=== PATIENT | male | born 1930 | race Caucasian/White ===

== ENCOUNTER 2019-04-20 14:45 | Inpatient (IN) ==
[2019-04-20] MEDS ORDERED: NS 3,000 ML IV ONE (15:24)
--- NOTE | 2019-04-20 15:40 | Diag Imaging Result Doc PS360 ---
CHEST-2 VIEWS - 04/20/2019 INDICATION: AMS COMPARISON: 07/26/2011 FINDINGS: There is a new left-sided biventricular pacemaker. There is significant cardiomegaly. Lung volumes are severely low with bibasilar crowding/atelectasis. IMPRESSION: Nonspecific findings. Electronically signed by Taz Serrato 04/20/2019 3:37 PM
--- NOTE | 2019-04-20 16:05 | Diag Imaging Result Doc PS360 ---
CT HEAD W/O CONTRAST - 04/20/2019 INDICATION: ams COMPARISON: None FINDINGS: There is mild diffuse cerebral atrophy. There is mild periventricular white matter chronic microvascular disease. There is a small focus of old encephalomalacia at the superior left cerebellar hemisphere compatible with a very small, old stroke. No intracranial mass or hemorrhage. The skull is intact. The sinuses are clear. There is advanced vascular calcification of the carotid siphons bilaterally. IMPRESSION: No acute process. This exam was performed using automated exposure control, adjustment of mA or kV according to patient size, and/or use of iterative reconstruction technique Electronically signed by Taz Serrato 04/20/2019 4:03 PM
[2019-04-20 16:54] LABS: BASO# 0.04 X1000 (0.0-0.2); BASO% 0.2 % (0.0-0.8); EOS# 0.03 X1000 (0.0-0.7); EOS% 0.2 % (0.0-10.0); HEMATOCRIT 38.3 % (42.0-52.0); HEMOGLOBIN 12.8 g/dL (14.0-18.0); IMM GRAN# 0.06 X1000 (0.0-0.04); IMM GRAN% 0.4 % (0.0-0.5); LYMPH# 1.58 X1000 (1.2-3.4); LYMPH% 9.3 % (20.5-51.1); MCH 30.2 PG (27-31); MCHC 33.4 g/dL (33-37); MCV 90.3 FL (81-99); MONO# 2.14 X1000 (0.11-0.59); MONO% 12.6 % (1.7-9.3); MPV 9.5 FL (7.4-10.4); NEUT# 13.08 X1000 (1.4-6.5); NEUT% 77.3 % (42.2-75.2); PLT 286 X1000 (130-400); RBC 4.24 XMIL (4.7-6.1); RDW 13.7 % (11.5-14.5); WBC 16.93 X1000 (4.8-10.8)
[2019-04-20 17:20] LABS: INR 1.1; PROTIME 15.1 Seconds (11.0-16.0)
[2019-04-20 17:37] LABS: ALB/GLOB RATIO 1.2; ALBUMIN 3.1 g/dL (3.5-5.0); CALCIUM 8.4 mg/dL (8.8-10.2); CREATININE 1.2 mg/dL (0.7-1.2); POTASSIUM 3.9 mmol/L (3.5-5.1); TOTAL BILIRUBIN 0.27 mg/dL (0.20-1.00); TOTAL PROTEIN 5.7 g/dL (6.3-8.3)
[2019-04-20] MEDS: ZOSYN 3.375 GM in NS 50 ML IV SCH ×2 (17:50→23:22)
--- NOTE | 2019-04-20 18:30 | PROVIDER DOCUMENTATION ---
This chart was entered by Johana Penaloza Scribe, acting as scribe for Jerald Galvan MD. HPI-General Adult - General Chief Complaint: Altered Mental Status Stated Complaint: AMS Time Seen by Provider: 04/20/19 15:02 Source: patient, family (daughter), EMS Allergies/Adverse Reactions: Patient Allergies Allergy/AdvReac Type Severity Reaction Status Date / Time No Known Allergies Allergy Verified 04/20/19 16:48 - History of Present Illness -Gen Adult Nature of Presenting Problems: 88 yowm presents to the ed via ems from [facility] that pt is at for rehab. pt per daughter at bedside (POA) pt has declined in recent days and had a stay in another hospital with 5 days of IV abx for possible PNE-04/04/19-04/08/19. daughter sts that her father at baseline can ambulate with a walker, speaks clearly and has dementia but knows her and himself. today pt is lethargic and has some mild garbled speech. pt denies pain on exam. daughter sts last few days ptr has diarrhea, weakness, cough, more confusion and has not been himself. Location of Pain/Injury: reports: none Pain Radiation: reports: no radiation Quality of Pain: reports: none Severity: reports: moderate Onset/Duration: reports: gradual Timing: reports: still present Modifying Factors: improves with: nothing Associated Symptoms: reports: cough, diarrhea, fatigue, fever/chills (101.0), loss of appetite, malaise, weakness, trouble walking. denies: back/neck pain, chest pain, headaches, nausea, shortness of breath, vomiting Similar Symptoms Previously?: Yes Recently seen or treated by another doctor?: Yes (recent stay in hospital 04/04- 04/08/19) Review of Systems - Adult - REVIEW OF SYSTEMS - ADULT ROS:: ROS per family (daughter) Constitutional: reports: see HPI, chills, fever, fatique Eyes: reports: no symptoms reported Ears, Nose, Mouth & Throat: reports: no symptoms reported Cardiovascular: denies: chest pain, palpitations Respiratory: reports: see HPI, cough. denies: shortness of breath, wheezing Gastrointestinal: reports: see HPI, diarrhea, poor appetite. denies: abdominal pain, nausea, vomiting Genitourinary: reports: no symptoms reported Musculoskeletal: reports: muscle weakness. denies: back pain, neck pain Integumentary: reports: no symptoms reported Neurological: reports: slurred speech. denies: dizziness/vertigo, headache/migraines, tremors Psychiatric: reports: no symptoms reported Endocrine: reports: no symptoms reported Hematologic/Lymphatic: reports: no symptoms reported Allergic/Immunologic: reports: no symptoms reported All Other Systems: Reviewed and Negative Past History - Adult - PAST MEDICAL HISTORY-ADULT Review of Records: reports: Nursing Assessment Review, Medications Reviewed Major Childhood Illnesses: reports: denies history Cardiovascular: reports: HTN, pacemaker Respiratory: reports: pneumonia Gastrointestinal: reports: denies history Genitourinary: reports: denies history Musculoskeletal: reports: denies history Neurological: reports: CVA, stroke deficits, dementia, Seizures/Epilepsy Endocrine/Immune: reports: denies history Other Conditions: reports: denies history - PRIOR SURGERIES/PROCEDURES Surgical/Procedure History: reports: reviewed, not pertinent - IMMUNIZATION STATUS Childhood Immunizations: See Nurse Assessment Flu Vaccine: See Nurse Assessment - FAMILY HISTORY Family History: reviewed, not pertinent - SOCIAL HISTORY Smoking: denies Substance Use: denies Living Situation: care facility Physical Exam-General - PHYSICAL EXAM-ADULT Initial Vital Signs Reviewed: Yes - CONSTITUTIONAL General Appearance: alert, no apparent distress, obese, slow to respond - EYES Eyes: PERRL/EOMI, pale conjunctivae - HEAD, EARS, NOSE, MOUTH & THROAT HENMT: moist mucous membranes - NECK Neck: full range of motion, supple, normal inspection - RESPIRATORY Respiratory: chest non-tender, lungs clear, normal breath sounds - CARDIOVASCULAR Cardiovascular: normal peripheral pulses, regular rate, rhythm - GASTROINTESTINAL (ABDOMEN) Abdominal Exam: normal bowel sounds, non tender, soft. negative: no organomegaly, no pulsatile mass, distended, rigid, rebound - LYMPHATIC Lymphatic: no adenopathy - MUSCULOSKELETAL Back Exam: normal inspection, no CVA tenderness, no vertebral tenderness Extremity: normal capillary refill, pelvis stable - SKIN Integumentary: warm/dry, pallor - NEUROLOGIC Neurologic: abnormal gait (pt unable to ambulate with walker which is baseline), other (abnormal speech). negative: facial droop - PSYCHIATRIC Psych/Mental Status: other (pt confused and speech isgarbaled) Progress - PLAN OF CARE/RESULTS Progress/Plan/Lab Results: Vital Signs - 8 hr 04/20/19 15:00 Temperature 101.0 F H Pulse Rate 92 H Respiratory Rate 22 Blood Pressure 133/80 O2 Sat by Pulse Oximetry 96 Laboratory Results - last 24 hr 04/20/19 15:08 POC Glucose 148 H Orders Category Date Time Status Cardiac Monitoring DIRECTED Care 04/20/19 15:23 Active IV Insertion ORDERED Care 04/20/19 15:23 Active Notify MD of + Sepsis Screen NOW Care 04/20/19 15:23 Active Notify Physician As Ordered Care 04/20/19 15:23 Active CHEST-2 VIEWS [RAD] Stat Exams 04/20/19 15:[address] HEAD W/O CONTRAST [CT] Stat Exams 04/20/19 15:25 Ordered BLOOD CULTURE [BLDCUL] Stat Lab 04/20/19 15:23 Uncollected CBC WITH DIFF [HEME] Stat Lab 04/20/19 15:23 Uncollected CK PROFILE [SP CHEM] Stat Lab 04/20/19 15:25 Uncollected COMPREHENSIVE METABOLIC PANEL [CHEM] Stat Lab 04/20/19 15:23 Uncollected LACTATE, PLASMA [CHEM] Q3H Lab 04/20/19 15:30 Uncollected LACTATE, PLASMA [CHEM] Q3H Lab 04/20/19 18:30 Uncollected LACTATE, PLASMA [CHEM] Q3H Lab 04/20/19 21:30 Uncollected PROTIME WITH INR [COAG] Stat Lab 04/20/19 15:23 Uncollected PTT [COAG] Stat Lab 04/20/19 15:23 Uncollected TROPONIN T Stat Lab 04/20/19 15:25 Uncollected URINALYSIS W/POSS RFLX CULT [URINALYSIS] Stat Lab 04/20/19 15:23 Uncollected 0.9% Sodium Chloride Inj [Ns] 3,000 ml Med 04/20/19 15:24 Discontinued IV Wide Open mls/hr Oxygen Device Stat Oth 04/20/19 15:23 Active Result Diagrams: 04/20/19 16:25 04/20/19 16:25 - REASSESSMENT Reassessment #1 Time Reassessed: 16:18 Status: unchanged - EKG 1 Time of EKG reading by physician:: 15:10 EKG Read and Signed by:: Jerald Galvan EKG Interpretation (*Must complete 3 of following elements*): Abnormal Rate: 94 Rhythm: atrial sensed ventricular paced rhythm w/ PVC - XRAY 1 XRAY: Bilateral XRAY Study: Chest Impression: See EMR Report (CHEST-2 VIEWS - 04/20/2019 INDICATION: AMS COMPARISON: 07/26/2011 FINDINGS: There is a new left-sided biventricular pacemaker. There is significant cardiomegaly. Lung volumes are severely low with bibasilar crowding/atelectasis. IMPRESSION: Nonspecific findings. El ectronically signed by Taz Serrato 04/20/2019 3:37 PM 04/20/19 1537 Interpreting Physician: Taz Serrato MD Dictated Date/Time: 04/20/19 1537 cc: Jerald Galvan MD;) - CT/MRI 1 CT Study: Head Impression: See EMR Report (CT HEAD W/O CONTRAST - 04/20/2019 INDICATION: ams COMPARISON: None FINDINGS: There is mild diffuse cerebral atrophy. There is mild periventricular white matter chronic microvascular disease. There is a small focus of old encephalomalacia at the superior left cerebellar hemisphere compatible with a very small, old stroke. No intracranial mass or hemorrhage. The skull is intact. The sinuses are clear. There is advanced vascular calcification of the carotid siphons bilaterally. IMPRESSION: No acute process. This exam was performed using automated exposure control, adjustment of mA or kV according to patient size, and/or use of iterative reconstruction technique Electronically signed by Taz Serrato 04/20/2019 4:03 PM 04/20/19 1603 Interpreting Physician: Taz Serrato MD Dictated Date/Time: 04/20/19 1602 cc: Jerald Galvan MD; None,PCP) - CONSULTS/PCP/HOSPITALIST Notification #1 *Consult/PCP/Hospitalist*: Dr Reyes Time Discussed: 18:28 Consult Disposition: Admit Departure - Departure Date of Disposition Decision: 04/20/19 Time of Disposition Decision: 18:29 DIAGNOSIS: Altered mental status Disposition: ADMITTED INPATIENT 09 Certified Medical Emergency: Emergent Condition: Stable Additional Freetext Instructions: We have examined and treated you today on an emergency basis only. This was not a substitute for, or an effort to provide, complete medical care. In most cases, you must let your doctor check you again. Tell your doctor about any new or lasting problems. We cannot recognize and treat all injuries or illnesses in one Emergency Department visit. If you had special tests, such as X-rays or CT scans, will be reviewed by radiologist and will call you if there are any new suggestions Follow up with primary care provider in 1 to 2 days if no improvement. If you do not have a primary care provider, you need to choose one as soon as possible. Take medicines as prescribed. Monitor for any side effects or adverse events from medications. If any side effect, adverse event or rash develops, or if you suspect any other adverse reaction to the medication, then discontinue the medication immediately and contact clinic /PCP or go to the nearest ER. Narcotic meds / sedative meds instruction - patent advised not to drive, operate any machinery or go into water after taking meds as it may impair mental ability to react to the situation in an appropriate manner. Continue other current medicines. Follow up with PCP within 24-48 hours, or sooner if symptoms worsen or fail to improve. Patient / guardian verbalizes understanding of treatment plan, medication, and side effects and agrees with treatment plan. Patient leaves ER in stable condition and ambulatory state. Return to ER as needed. Discharge instructions reviewed verbally and given to patient in written form. Follow up with primary care provider. Referrals and Follow-Ups: None,PCP [Primary Care Provider] - - Critical Care Note This patient required my direct & personal management of CC.: No Attestation - Physician/ TERESSA Attestation Patient care was provided by Advanced Practice Provider:: No The physician spent face to face time with patient:: Yes Advanced Practice Provider documentation review:: Supervising physician onsite and consulted in the evaluation and care of this patient. The physician did have a face to face encounter with the patient. This chart was documented by the indicated scribe, (Johana Penaloza Scribe) and accurately reflects the services I performed and decisions made by me, Jerald Galvan MD, as attested by the provider's signature.
[2019-04-20] MEDS ORDERED: VANCOMYCIN 1 GM/NS 1 GM/250 ML IVPB IV ONE (18:56)
[2019-04-20] MEDS ORDERED: TYLENOL PO PRN (19:48)
[2019-04-20] MEDS ORDERED: VANCOMYCIN 1 GM/NS 1 GM/250 ML IVPB IV SCH (20:00)
[2019-04-20 20:44] LABS: URINE SOURCE CATH
[2019-04-20 20:49] LABS: BILIRUBIN URINE NEGATIVE (NEGATIVE); BLOOD URINE NEGATIVE (NEGATIVE); COLOR YELLOW; GLUCOSE URINE NEGATIVE (NEGATIVE); KETONE URINE NEGATIVE (NEGATIVE); LEUKOCYTES URINE NEGATIVE (NEGATIVE); NITRITE URINE NEGATIVE (NEGATIVE); PH URINE 5.5; PROTEIN URINE 30 mg/dL (NEGATIVE); SP GRAVITY URINE 1.025; TURBIDITY URINE CLEAR (CLEAR); UROBILINOGEN URINE NORMAL (NORMAL)
[2019-04-20 20:50] LABS: UR EPITHELIAL CELLS <10 /HPF (<10); URINE BACTERIA NEGATIVE /HPF; URINE RBC <10 /HPF (<10); URINE WBC <10 /HPF (<10)
[2019-04-20] MEDS ORDERED: NS 1,000 ML IV ONE (20:55)
[2019-04-20] MEDS ORDERED: VANCOMYCIN IV PER PHARMACY MISC SCH (21:06)
[2019-04-20] MEDS ORDERED: ZOFRAN IV PRN (21:06)
[2019-04-20] MEDS: LOVENOX SUBQ SCH (21:30)
--- NOTE | 2019-04-20 21:49 | Diag Imaging Result Doc PS360 ---
EXAM: CT THORAX W/O CONTRAST HISTORY: pna? TECHNIQUE: CT chest without contrast COMPARISON: None. FINDINGS: The heart is enlarged. Prominent atherosclerosis. There are several small calcified mediastinal nodes with several mildly prominent noncalcified nodes. Atelectasis versus a small infiltrate left lung base. IMPRESSION: Basilar atelectasis versus small infiltrates. This exam was performed using automated exposure control, adjustment of mA or kV according to patient size, and/or use of iterative reconstruction technique. Electronically signed by Jordi Carey 04/20/2019 9:46 PM
[2019-04-20] MEDS: KEPPRA 500 MG in NS 100 ML IV SCH (22:20)
--- NOTE | 2019-04-20 22:25 | HISTORY AND PHYSICAL ---
CHIEF COMPLAINT: Altered mental status. HISTORY OF PRESENT ILLNESS: Mr. Fried is an 88-year-old male with a history of atrial fibrillation, hyperlipidemia, seizure disorder, dementia, congestive heart failure, coronary artery disease status post myocardial infarction, stenting and pacemaker implantation as well as previous CVA, who has had altered mental status. He has also had cough, diarrhea, fever, chills, loss of appetite, malaise, weakness and difficulty ambulating. Apparently, on 04/06/2019 the patient went to [facility], was told that he was having questionable heart attack and had a urinary tract infection. He was then transferred to [facility] where they stated that he was not having a heart attack, he did not have a urinary tract infection. He felt that he had a pneumonia. A CT of the chest then apparently ruled out pneumonia but the patient took, per the daughter, 5 days of antibiotics. He now has diarrhea, is more confused, has not been himself and he was discharged to [facility]. They came back in today related to him having garbled speech, a temperature of around 102. He is oriented to person. His speech is very garbled. He is not very helpful during examination. The daughter said this is not his baseline. Initial workup in the emergency room did show an elevated white blood cell count, but CT and chest x-ray did not have any acute findings. Urine is pending. The patient will be admitted for further evaluation and treatment. PAST MEDICAL HISTORY: See HPI. PREVIOUS SURGICAL HISTORY: Cardiac stenting, pacemaker implantation. SOCIAL HISTORY: He normally lives at home with 24-hour caregivers. He has been at [facility] since his recent discharge. No tobacco, alcohol or illicit drugs. FAMILY HISTORY: Two brothers had coronary artery disease and myocardial infarctions. Father had coronary artery disease and from a myocardial infarction. ALLERGIES: No known drug allergies. HOME MEDICATIONS: A list of home medications was not available on admission. An order was placed for Nursing to contact [facility] and verify list of home medications and place in the computer. These can be restarted when appropriate. REVIEW OF SYSTEMS: Fourteen-point review of systems cannot be completed related to patient's mentation. Pertinent positives for admission are listed above in the HPI. All other systems could not be fully reviewed. PHYSICAL EXAMINATION: VITAL SIGNS: Temperature 100.8, pulse 93, respirations 21, blood pressure 142/89, oxygen saturation 95% on room air. GENERAL: An 88-year-old male oriented only to person, seems somewhat hard of hearing, very slow to respond. Speech is garbled. He is in no acute distress. Daughter is at bedside. HEENT: Head is atraumatic, normocephalic. Pupils equal, round, reactive to light. Mildly miotic. Extraocular eye movement is intact. However, patient does not fully follow commands. He does track around the room. Sclerae are anicteric. Conjunctiva is pink. Oral mucosa is moist. NECK: Supple. No JVD. No thyromegaly. Trachea is midline. No cervical lymphadenopathy. CARDIAC: S1, S2 appreciated. No murmurs, gallops, rubs. LUNGS: Clear to auscultation bilaterally. No rhonchi, wheezes, rales. Symmetric rise and fall with respirations. ABDOMEN: Soft, nondistended, nontender. Bowel sounds present all 4 quadrants, normoactive. No pulsatile mass. No organomegaly. EXTREMITIES: No clubbing, cyanosis or edema. Two-plus pedal pulses bilaterally. GENITOURINARY: No bladder distention. Avitia catheter will be placed. Otherwise deferred. NEUROLOGICAL: Oriented only to person. Patient does not fully follow commands at this time. DIAGNOSTIC DATA: CT of the head showed old areas of infarct in the superior left cerebral hemisphere. Also mild diffuse cerebral atrophy, mild periventricular white matter chronic microvascular disease. Chest x-ray: Severely low lung volumes with bibasilar crowding or atelectasis. CT of the chest is pending. Urine is pending. LABORATORY DATA: WBC 16.93. Hemoglobin 12.8. Hematocrit 38.3. Platelet count 286. Sodium 134. Potassium 3.9. Chloride 98. Carbon dioxide 23. BUN 16. Creatinine 1.2. Glucose 124. ASSESSMENT AND PLAN: 1. Encephalopathy. This could be toxic related to his medications which I am unsure of at this point. I know that he does have a seizure disorder. The daughter was unable to tell me which medication he takes. We will check a Depakote and phenytoin level. Could also be infectious. CT scan to rule out pneumonia. He does have an elevated white blood cell count. Also, urine is pending. He was given Zosyn and vancomycin in the emergency room. We will continue these at this time. We will also check a stool for C. difficile as well as a stool culture. 2. Seizure disorder. 3. Dementia. 4. Congestive heart failure. 5. Coronary artery disease. 6. Hyperlipidemia. We will continue home medications. Patient is normotensive at this time. We will place on the medical floor close to nursing staff. He is febrile. We will give Tylenol as needed. Further recommendations per clinical course. Dictated by MILLER Contreras for Chinedu Reyes MD I have performed a face to face diagnostic evaluation. Labs and Xrays - reviewed. Exam- Chest- clear, Neuro- altered A/P- AMS, seizures, dementia- Admit, neuro check, seizure precautions. Dr. Reyes cc: MILLER Contreras MD [facility]
[2019-04-21] MEDS ORDERED: CALMOSEPTINE OINTMENT TOP PRN (00:06)
[2019-04-21] MEDS ORDERED: VANCOMYCIN 1 GM/NS 1 GM/250 ML IVPB IV ONE (00:30)
[2019-04-21 07:12] LABS: BASO# 0.03 X1000 (0.0-0.2); BASO% 0.2 % (0.0-0.8); EOS# 0.02 X1000 (0.0-0.7); EOS% 0.1 % (0.0-10.0); HEMATOCRIT 34.7 % (42.0-52.0); HEMOGLOBIN 11.3 g/dL (14.0-18.0); IMM GRAN# 0.06 X1000 (0.0-0.04); IMM GRAN% 0.4 % (0.0-0.5); LYMPH# 1.61 X1000 (1.2-3.4); LYMPH% 11.1 % (20.5-51.1); MCH 29.7 PG (27-31); MCHC 32.6 g/dL (33-37); MCV 91.3 FL (81-99); MONO# 1.63 X1000 (0.11-0.59); MONO% 11.2 % (1.7-9.3); MPV 9.8 FL (7.4-10.4); NEUT# 11.16 X1000 (1.4-6.5); PLT 215 X1000 (130-400); RDW 13.8 % (11.5-14.5); WBC 14.51 X1000 (4.8-10.8)
[2019-04-21 07:43] LABS: AGAP 13; BUN 11 mg/dL (8-22); CALCIUM 7.5 mg/dL (8.8-10.2); CHLORIDE 108 mmol/L (98-107); COSMO 276; ESTIMATED GFR > 60; GLUCOSE 107 mg/dL (70-104); POTASSIUM 3.4 mmol/L (3.5-5.1); SODIUM 138 mmol/L (136-145); TCO2 17 mmol/L (25-35)
[2019-04-21] MEDS: ZOSYN 3.375 GM in NS 50 ML IV SCH (09:25)
[2019-04-21] MEDS: VANCOCIN PO SCH ×2 (10:30→14:04)
[2019-04-21] MEDS: KEPPRA PO SCH (10:30)
[2019-04-21] MEDS: KEPPRA 500 MG in NS 100 ML IV SCH (10:51)
[2019-04-21] MEDS ORDERED: NS 1,000 ML IV SCH (13:30)
[2019-04-21] MEDS: D5 1/2 NS 1,000 ML IV SCH (14:03)
--- NOTE | 2019-04-21 16:11 | PROGRESS NOTE ---
DATE: 04/21/2019 SUBJECTIVE: This morning Mr. Fried refers to be doing a little better. The daughter and the son were at the bedside at the time of the encounter. They also agreed that the dad is looking a little better than yesterday. OBJECTIVE: Current vitals: Blood pressure is 137/63, pulse of 77, respirations 23, temperature 98.9, patient saturating 97% on room air. General: Mr. Fried is an 88-year-old male. He is in bed. No distress. HEENT: Mucosa is pink, slightly dry. Anicteric. Acyanotic. Neck: Supple. Chest: Good air entry bilateral. There are no crepitations, no rhonchi. Cardiovascular: Regular rate and rhythm. There is a pacemaker generator pocket in the left anterior chest wall. Abdomen: Soft. Extremities: No pedal edema. SLURRY MAN: Patient is awake, alert, kind of hard of hearing, which the family was also concerned about that. LABORATORY DATA: Has been reviewed. WBCs 14.51, hemoglobin is 11.3, platelet count of 215. Chemistry is also reviewed. Potassium is 3.4, chloride 17. Rest of chemistry is unremarkable. Microbiology data shows C diff toxin and antigen are both positive. Imaging studies have also been reviewed. ASSESSMENT: 1. Altered mental status on presentation secondary to infectious encephalopathy, improved. 2. Clostridium difficile diarrhea. Patient was on broad-spectrum IV antibiotics initially. We have discontinued these and started him on p.o. vancomycin. 3. History of seizures. We will continue with his home medications. 4. Dementia. 5. Clinical volume depletion. We will start the patient on gentle hydration for 1 day and re- evaluate his hydration status tomorrow to make further recommendations. 6. Hearing impairment. Family members referred that this seems to be of acute onset. We will get ENT to evaluate. 7. Generalized weakness. Will get physical therapy. 8. History of dysphagia with chronic aspiration as a result of previous multiple cerebrovascular accidents. The patient was on a pureed diet. We will start him on that and also get a speech evaluation on him on Tuesday. 9. History of coronary artery disease with congestive heart failure, currently actually volume depleted, so we will start the patient on gentle hydration and go from there. PLAN: In general, I think Mr. Fried is fairly stable. Hydration status is improving. The patient was started on broad-spectrum IV antibiotics. We will narrow this down to only p.o. vancomycin for the C difficile diarrhea. Will get a swallow evaluation and have ENT and physical therapy to evaluate him. I have explained the plan to the family members who were at the bedside. We will also restart his home medications. cc: Grant Monae MD
[2019-04-21] MEDS: TEGRETOL XR PO SCH (22:36)
[2019-04-21] MEDS: LOVENOX SUBQ SCH (22:38)
[2019-04-22] MEDS ORDERED: VANCOMYCIN 1,250 MG in NS 250 ML IV SCH (00:30)
[2019-04-22] MEDS: VANCOCIN PO SCH ×4 (02:54→21:17)
[2019-04-22] MEDS: D5 1/2 NS 1,000 ML IV SCH (03:04)
[2019-04-22 07:07] LABS: BASO# 0.05 X1000 (0.0-0.2); BASO% 0.4 % (0.0-0.8); EOS# 0.57 X1000 (0.0-0.7); HEMATOCRIT 33.1 % (42.0-52.0); IMM GRAN# 0.08 X1000 (0.0-0.04); IMM GRAN% 0.6 % (0.0-0.5); LYMPH# 3.19 X1000 (1.2-3.4); LYMPH% 22.4 % (20.5-51.1); MCHC 33.2 g/dL (33-37); MCV 90.2 FL (81-99); MONO# 1.62 X1000 (0.11-0.59); MONO% 11.4 % (1.7-9.3); MPV 9.6 FL (7.4-10.4); NEUT# 8.73 X1000 (1.4-6.5); NEUT% 61.2 % (42.2-75.2); PLT 218 X1000 (130-400); RBC 3.67 XMIL (4.7-6.1); RDW 13.6 % (11.5-14.5); WBC 14.24 X1000 (4.8-10.8)
[2019-04-22 07:36] LABS: AGAP 12; ALB/GLOB RATIO 0.8; ALBUMIN 2.3 g/dL (3.5-5.0); ALKALINE PHOSPHATASE 112 U/L (32-122); BUN 10 mg/dL (8-22); CALCIUM 7.6 mg/dL (8.8-10.2); CHLORIDE 107 mmol/L (98-107); COSMO 277; ESTIMATED GFR > 60; GLUCOSE 112 mg/dL (70-104); GOT 12 U/L (10-34); GPT 6 U/L (10-44); POTASSIUM 2.9 mmol/L (3.5-5.1); SODIUM 139 mmol/L (136-145); TCO2 20 mmol/L (25-35); TOTAL BILIRUBIN 0.18 mg/dL (0.20-1.00); TOTAL PROTEIN 5.3 g/dL (6.3-8.3)
[2019-04-22] MEDS: ASPIRIN EC PO SCH (08:42)
[2019-04-22] MEDS: COZAAR PO SCH (08:42)
[2019-04-22] MEDS: CORDARONE PO SCH (08:42)
[2019-04-22] MEDS: PROTONIX PO SCH (08:42)
[2019-04-22] MEDS: TEGRETOL XR PO SCH ×2 (08:42→21:17)
[2019-04-22] MEDS: KEPPRA PO SCH ×2 (08:42→21:17)
[2019-04-22] MEDS: KLOR-CON PO SCH (08:42)
[2019-04-22] MEDS: VITAMIN D PO SCH (08:42)
[2019-04-22] MEDS: NAMENDA XR PO SCH (08:42)
--- NOTE | 2019-04-22 17:21 | PROGRESS NOTE ---
DATE: 04/22/2019 SUBJECTIVE: The patient resting on bed, not in any obvious distress. OBJECTIVE: Vital signs: Temperature 98 degrees, pulse 68, respiratory rate 16, blood pressure 140/66. HEENT: Atraumatic, normocephalic. Cardiovascular System: S1, S2. Respiratory system has evidence of good air entry bilaterally. Abdomen is soft, nontender. No masses felt. Extremities: No evidence of edema. Central Nervous System: No obvious focal deficit. DIAGNOSTIC STUDIES: WBC 14.24 hematocrit 33.1, with a platelet count of 218. Sodium is 139, potassium 2.9, chloride is 107, bicarbonate 20, BUN is 10, creatinine 1.0. ASSESSMENT AND PLAN: 1. Altered mental status. Improved. 2. Clostridium difficile colitis. Continue oral vancomycin. 3. Seizure disorder. Continue antiepileptic agent. 4. Dementia. Supportive care. 5. Hearing impairment. Follow up with ENT in the outpatient. 6. History of dysphagia with chronic aspiration as a result of previous cerebrovascular accident. Aspiration precaution. 7. Coronary artery disease. Asymptomatic. 8. Congestive heart failure. Stable. 9. Deep vein thrombosis prophylaxis. Lovenox. 10. Gastrointestinal prophylaxis. Proton pump inhibitor. DISPOSITION: Patient will be going back to [facility] when ready for discharge. cc: Sergey Irving MD
[2019-04-22] MEDS: POTASSIUM CHLORIDE 20 MEQ/SWI 20 MEQ/100 ML IVPB IV SCH ×2 (18:15→21:18)
[2019-04-22 19:07] LABS: AGAP 10; BUN 11 mg/dL (8-22); CALCIUM 7.9 mg/dL (8.8-10.2); CHLORIDE 103 mmol/L (98-107); COSMO 273; ESTIMATED GFR > 60; GLUCOSE 133 mg/dL (70-104); POTASSIUM 3.4 mmol/L (3.5-5.1); SODIUM 136 mmol/L (136-145); TCO2 23 mmol/L (25-35)
[2019-04-22] MEDS: LOVENOX SUBQ SCH (21:17)
[2019-04-22] MEDS: PRAVACHOL PO SCH (21:18)
[2019-04-23] MEDS: VANCOCIN PO SCH ×4 (03:49→20:16)
[2019-04-23 07:11] LABS: BASO# 0.06 X1000 (0.0-0.2); BASO% 0.5 % (0.0-0.8); EOS# 0.68 X1000 (0.0-0.7); EOS% 6.2 % (0.0-10.0); HEMATOCRIT 33.5 % (42.0-52.0); IMM GRAN% 0.9 % (0.0-0.5); LYMPH# 2.52 X1000 (1.2-3.4); LYMPH% 22.9 % (20.5-51.1); MCH 29.4 PG (27-31); MCHC 32.8 g/dL (33-37); MCV 89.6 FL (81-99); MONO% 11.8 % (1.7-9.3); MPV 9.5 FL (7.4-10.4); NEUT# 6.33 X1000 (1.4-6.5); NEUT% 57.7 % (42.2-75.2); PLT 250 X1000 (130-400); RBC 3.74 XMIL (4.7-6.1); RDW 13.5 % (11.5-14.5); WBC 10.99 X1000 (4.8-10.8)
[2019-04-23] MEDS: TEGRETOL XR PO SCH ×2 (09:34→20:16)
[2019-04-23] MEDS: ASPIRIN EC PO SCH (09:35)
[2019-04-23] MEDS: VITAMIN D PO SCH (09:35)
[2019-04-23] MEDS: COZAAR PO SCH (09:35)
[2019-04-23] MEDS: CORDARONE PO SCH (09:35)
[2019-04-23] MEDS: PROTONIX PO SCH (09:35)
[2019-04-23] MEDS: NAMENDA XR PO SCH (09:35)
[2019-04-23] MEDS: KLOR-CON PO SCH (09:36)
[2019-04-23] MEDS: KEPPRA PO SCH ×2 (09:36→20:16)
--- NOTE | 2019-04-23 09:51 | EKG Report ---
Test Performed on : 04/20/2019 3:02:23 PM Test Reason : ED. NO EKG ORDER FOR MUSE Blood Pressure : / mmHG Vent. Rate : 094 BPM Atrial Rate : 094 BPM P-R Int : 138 ms QRS Dur : 146 ms QT Int : 394 ms P-R-T Axes : 113 -52 005 degrees QTc Int : 492 ms Atrial-sensed ventricular-paced rhythm with occasional premature ventricular complexes. Abnormal ECG When compared with ECG of 26-JUL-2011 06:02, Electronic ventricular pacemaker has replaced Sinus rhythm. Unconfirmed Result
--- NOTE | 2019-04-23 14:34 | PROGRESS NOTE ---
DATE: 04/23/2019 SUBJECTIVE: Patient is resting comfortably in bed. Not in any obvious distress. OBJECTIVE: Vital Signs: Temperature is 97.5 degrees, pulse 71, respiratory rate is 17, blood pressure 159/72, oxygen saturation is 100%. HEENT: Atraumatic and normocephalic. Cardiovascular System: S1 and S2. Respiratory System: Has evidence of good air entry bilaterally. Abdomen: Soft, nontender. No masses felt. Extremities: No evidence of edema. Central Nervous System: No obvious focal deficits noted. Laboratory Data: WBCs 10.99, hematocrit is 33.5, with a platelet count of 250,000. ASSESSMENT AND PLAN: 1. Altered mental status. Improved. 2. Clostridium difficile colitis. Continue oral vancomycin. 3. Seizure disorder. Continue antiepileptic agent. 4. Dementia. Supportive care. 5. Hearing impairment. Follow up with the ears, nose, and throat as outpatient preferably. 6. History of dysphagia with chronic aspiration as a result of a previous cerebrovascular accident. Aspiration precautions. 7. Coronary artery disease. Asymptomatic. 8. Congestive heart failure. Stable. 9. Deep vein thrombosis prophylaxis. Lovenox. 10. Gastrointestinal prophylaxis. Proton pump inhibitor. 11. Disposition. Patient will be going to [facility] when ready for discharge. cc: Sergey Irving MD
[2019-04-23] MEDS: PRAVACHOL PO SCH (20:16)
[2019-04-23] MEDS: LOVENOX SUBQ SCH (20:17)
[2019-04-24] MEDS: VANCOCIN PO SCH ×3 (03:44→14:11)
[2019-04-24] MEDS: CORDARONE PO SCH (09:11)
[2019-04-24] MEDS: NAMENDA XR PO SCH (09:11)
[2019-04-24] MEDS: ASPIRIN EC PO SCH (09:11)
[2019-04-24] MEDS: PROTONIX PO SCH (09:11)
[2019-04-24] MEDS: TEGRETOL XR PO SCH (09:11)
[2019-04-24] MEDS: COZAAR PO SCH (09:12)
[2019-04-24] MEDS: KLOR-CON PO SCH (09:12)
[2019-04-24] MEDS: KEPPRA PO SCH (09:12)
[2019-04-24] MEDS: VITAMIN D PO SCH (09:12)
--- NOTE | 2019-04-24 14:52 | DISCHARGE SUMMARY ---
ADMISSION DATE: 04/20/2019 DISCHARGE DATE: 04/24/2019 DISPOSITION: [facility]. CONSULTATIONS DURING THIS ADMISSION: None. IMAGING STUDIES OF SIGNIFICANCE: 1. A chest x-ray showed nonspecific findings. 2. A CT scan of the head showed no acute process. 3. A chest CT did show bilateral atelectasis versus small infiltrates. ADMISSION DIAGNOSES: 1. Encephalopathy. 2. Seizure disorder. 3. Dementia. 4. Congestive heart failure. 5. Coronary artery disease. DIAGNOSES AT THE TIME OF DISCHARGE: 1. Altered mental status on presentation secondary to global encephalopathy from infectious and dehydration, resolved. 2. Clostridium difficile diarrhea. The patient has been started on oral vancomycin and treatment will be for 10 days. 3. History of seizures, stable. 4. Clinical volume depletion, improved. 5. Dementia. 6. Generalized weakness. 7. History of dysphagia with chronic aspiration as a result of previous multiple cerebrovascular accidents. The patient was evaluated by speech and swallow evaluation, and was recommended to be on a pureed diet and observe aspiration precautions. 8. History of coronary artery disease. 9. History of congestive heart failure, currently euvolemic. DISCHARGE MEDICATIONS: 1. Amiodarone 200 mg p.o. daily. 2. Aspirin 81 mg daily. 3. Carbamazepine 200 mg b.i.d. 4. Cholecalciferol 1000 units p.o. daily. 5. Hydrochlorothiazide 25 mg p.o. every other day. 6. Keppra 500 mg b.i.d. 7. Losartan 50 mg daily. 8. Memantine 28 mg p.o. daily. 9. Pantoprazole 40 mg p.o. daily. 10. Pravastatin 80 mg p.o. daily. 11. Vancomycin 250 p.o. q.6 hourly for 7 more days. PRESENTING COMPLAINT: Altered mental status. HISTORY OF PRESENTING COMPLAINT: Mr. Fried is an 88-year-old, male with a history of atrial fibrillation, dyslipidemia, seizures. Came to the emergency department because of altered mental status. Patient has been having fever and diarrhea a couple days before. We understand that he was treated for a UTI a couple days before. Upon presenting to the emergency department, he was found to have a temperature of 102 degrees. A stool culture was positive for C. difficile. He was subsequently admitted for sepsis related syndrome and possible C. difficile diarrhea. HOSPITAL COURSE: Mr. Fried was admitted to the medical floor. He was adequately fluid resuscitated and was started on broad-spectrum IV antibiotics which was later on transition to p.o. vancomycin. He was also seen on multiple occasions by physical therapy. His general clinical condition improved. His white cell count improved from 16 to 10.9, and he has been tolerating his pureed diet as recommended by speech therapy. The patient has also been advised to observe aspiration precautions. This morning, he feels a lot better. The daughter was at the bedside at the time of the encounter. His current vitals, blood pressure is 136/63, pulse of 79, respirations are 19, temperature is 97.9 degrees. He is saturating 97% on room air. Physical exam is unremarkable. We are going to discontinue the Avitia catheter and then get him back to the rehab center. All the discharge instructions have been discussed with him and the daughter who was at the bedside. All questions have been answered. Mr. Fried also has some hearing impairment and has been advised to follow up with ENT. Time spent for discharge is 36 minutes. cc: MD Arnoldo Rubio MD
[2019-04-24 16:12] VITALS: BP 136/70
== END 2019-04-24 17:05 | DRG 371 ==
LOC: ED 14:45 → SUATTDRO 21:50 → 3N 21:50
PROVIDERS: ATTEND Internal Medicine
CPT/HCPCS: 51702; 70450; 71020; 71046; 71250; 80048; 80053; 80164; 80165; 80185; 81001; 82550; 82948; 83605; 84443; 84484; 85025; 85610; 85730; 87040; 87045; 87046; 87324; 87449; 93005; 96365; 96367; 96372; 96375; 97110; 97162; 97530; 99285; A9270; J1650; J1953; J2543; J3370; J3480; J7030; XXXXX